=== PATIENT | male | born 1960 | race Caucasian/White ===

== ENCOUNTER → 2016-12-14 | Outpatient (CLI) | payer BC ==
[~2016-12-14] MED LIST: ATOR-26 PO; EZET10TA63 PO; HYDR12.524 PO; LISI40TA PO
[2016-12-14 15:02] LABS: ALT/SGPT 95 U/L (12-78); AST/SGOT 50 U/L (15-37); BLOOD UREA NITROGEN 16 mg/dl (7-18); CALCIUM 9.3 mg/dl (8.5-10.1); CARBON DIOXIDE 31 mmol/L (21-32); CHLORIDE 102 mmol/L (98-107); CHOLESTEROL 225 mg/dl (0-200); CREATININE 0.93 mg/dl (0.60-1.40); GLUCOSE 86 mg/dl (70-99); SODIUM 139 mmol/L (136-145)
[2016-12-14 15:06] LABS: CHOLESTEROL/HDL RATIO 4.2; HDL CHOLESTEROL 53 mg/dl; LDL CHOLESTEROL CALCULATED 159 mg/dl; TRIGLYCERIDES 63 mg/dl (0-150); VERY LOW DENSITY LIPOPROT CALC 13 mg/dl
== END | disposition home or self-care (01) ==
LOC: C.LAB 14:03
DX: I10 Essential (primary) hypertension (principal); E78.5 Hyperlipidemia, unspecified

== ENCOUNTER 2017-02-09 17:09 | Emergency (ER) | payer BC ==
[~2017-02-09] VITALS: Ht 177.8 cm; Wt 99.1 kg
[2017-02-09 17:16] VITALS: TEMP 36.9; Ht 177.8 cm; Wt 99.1 kg
[2017-02-09] MEDS ORDERED: SODIUM CHLORIDE 0.9% 1000ML 1,000 ML IV STA (17:35)
[2017-02-09 17:40] LABS: BASO % 0.4 %; BASO ABS # 0.02 K/uL (0-0.2); COMPLETE YES; EOS % 1.9 %; HEMATOCRIT 45.2 % (42-52); IG% 0.4 %; LYMPH % 26.7 %; LYMPH ABS # 1.51 K/uL (1.2-3.4); MEAN CELL VOLUME 89.2 fL (80-100); MEAN CORPUSCULAR HEMOGLOBIN 30.8 pg (25-34); MEAN CORPUSCULAR HGB CONC 34.5 g/dl (32-36); MEAN PLATELET VOLUME 9.6 fL (7.4-10.4); MONO % 12.2 %; NEUT % 58.4 %; PLATELET COUNT 242 K/uL (130-400); RED BLOOD COUNT 5.07 M/uL (4.7-6.1); WHITE BLOOD COUNT 5.66 K/uL (4.8-10.8)
[2017-02-09] MEDS ORDERED: LISI40TA PO (17:41)
[2017-02-09] MEDS ORDERED: EZET10TA63 PO (17:41)
[2017-02-09] MEDS ORDERED: HYDR12.524 PO (17:41)
[2017-02-09] MEDS ORDERED: ATOR-26 PO (17:41)
[2017-02-09] MEDS ORDERED: OPTIRAY 320 IV PRN (17:45)
[2017-02-09 17:57] LABS: BUN/CREATININE RATIO 14.6 (10-20); CALCIUM 9.2 mg/dl (8.5-10.1); CREATININE 1.1 mg/dl (0.60-1.40); POTASSIUM 3.7 mmol/L (3.5-5.1)
[2017-02-09 18:07] LABS: URINE APPEARANCE CLEAR (CLEAR); URINE BILIRUBIN NEG (NEG); URINE COLOR YELLOW; URINE NITRITE NEG (NEG); URINE PH 5.5 (4.5-7.5); UROBILINOGEN NEG (NEG); ZZUR CULT IF INDIC CLEAN CATCH NO
[2017-02-09 18:21] LABS: MANUAL MICROSCOPIC REQUIRED? NO; REVIEW REQ? NO
--- NOTE | 2017-02-09 18:49 | DIAGNOSTIC IMAGING REPORT ---
CT ABD/PELVIS IV CONTRAST ONLY CLINICAL HISTORY: Right lower quadrant abdominal pain COMPARISON STUDY: None. TECHNIQUE: Following the IV administration of 117 mL of Optiray-320, CT scan of the abdomen and pelvis was performed from the lung bases to the proximal femurs. Images are reviewed in the axial, sagittal, and coronal planes. IV contrast was administered without complication. CT DOSE: 763.25 mGy.cm FINDINGS: Lower chest: The heart is normal in size and configuration, without pericardial effusion. The lung bases and pleural spaces are clear. Liver: The contrast-enhanced liver is normal in size, contour, and attenuation. There is no intrahepatic biliary ductal dilatation. The hepatic veins and portal veins are patent. Gallbladder: Unremarkable. Spleen: Normal in size and attenuation. Pancreas: Unremarkable. Adrenal glands: Unremarkable. Kidneys: There are several small left renal cyst large of which measures 1 cm. 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 Bowel: There are no transition zones indicate bowel obstruction. There are no findings to indicate acute diverticulitis. There is no evidence of acute appendicitis. Peritoneum: There is no intraperitoneal free air or abdominal ascites. There is small fat-containing umbilical hernia. There are postsurgical changes of bilateral inguinal hernia repair. There is a small fat-containing right inguinal hernia. Vasculature: The abdominal aorta is normal in course and caliber. Adenopathy: There is a right inguinal lymph node the upper limits of normal in size. Pelvic viscera: The bladder, and pelvic viscera are unremarkable. Skeletal structures: No destructive osseous lesions are seen. IMPRESSION: 1. No evidence of bowel obstruction. No evidence of free air 2. No acute inflammatory changes. No evidence of acute diverticulitis. No evidence of acute appendicitis. 3. Postsurgical changes of bilateral inguinal hernia repair. Small recurrent fat-containing right inguinal hernia. Electronically signed by: Cristian Rao M.D. 02/09/2017 6:47 PM Dictated Date/Time: 02/09/2017 6:42 PM
[2017-02-09 20:40] VITALS: BP 131/87; PULSE 62; O2SAT 97
--- NOTE | 2017-02-09 23:09 | EMERGENCY ROOM VISIT NOTE ---
History Report prepared by Robert: Umu Palmer Under the Supervision of: Dr. Paul Keita D.O. First contact with patient: 17:11 Chief Complaint: ABDOMINAL PAIN Stated Complaint: ABDOMINAL PAIN- PHYSICIAN REFERRED Nursing Triage Summary: Pt presents from PCPs office, sent here for possible appendictis. Pt verbalizes right sided abdominal pain since Tuesday morning. Denies N/V. Denies urinary symptoms. Normal BMs. History of Present Illness The patient is a 56 year old male who presents to the Emergency Room with complaints of constant RLQ abdominal pain beginning 2 days ago. The patient states that his pain has increased since it started 2 days ago and he went to see his PCP today just prior to arrival. He reports that his PCP sent him in here. The patient notes that the pain is worse when he bends over. He denies any nausea, vomiting, fever, testicular pain, urinary symptoms, changes in bowel movements, chest pain, shortness of breath. He states that he still has his gallbladder and appendix. Source of History: patient Onset: 2 days ago Position: abdomen (RLQ) Timing: constant Modifying Factors (Worsening): other (bending over) Associated Symptoms: No SOB, No chest pain, No fevers, No nausea, No urinary symptoms, No vomiting Note: He denies any testicular pain and changes in bowel movements. Review of Systems See HPI for pertinent positives & negatives. A total of 10 systems reviewed and were otherwise negative. Past Medical & Surgical Medical Problems: (1) Heart disease (2) Hypertension Family History FH: heart disease Hypertension Social History Smoking Status: Never Smoker Smokeless Tobacco Use: No Alcohol Use: occasionally Marital Status: Housing Status: lives with significant other Occupation Status: employed Current/Historical Medications Scheduled Atorvastatin (Lipitor), 80 MG PO DAILY Ezetimibe (Zetia), 10 MG PO DAILY Hydrochlorothiazide (Microzide), 12.5 MG PO DAILY Lisinopril (Zestril), 40 MG PO DAILY Allergies Coded Allergies: No Known Allergies (Unverified , 02/09/17) Physical Exam Vital Signs Date Time Temp Pulse Resp B/P Pulse Ox O2 Delivery O2 Flow Rate FiO2 02/09/17 20:40 62 16 131/87 97 Room Air 02/09/17 18:53 76 18 114/78 96 Room Air 02/09/17 17:16 36.9 91 18 141/101 95 Room Air Physical Exam GENERAL: alert, sitting up in bed, disheveled, well appearing, well nourished, no distress, non-toxic EYE EXAM: normal conjunctiva OROPHARYNX: no exudate, no erythema, lips, buccal mucosa, and tongue normal and mucous membranes are moist NECK: supple, no nuchal rigidity, no adenopathy, non-tender LUNGS: Clear to auscultation. Normal chest wall mechanics HEART: no murmurs, S1 normal and S2 normal ABDOMEN: abdomen soft, faint RLQ-RMQ abdominal pain, normo-active bowel sounds, no masses, no rebound or guarding. BACK: Back is symmetrical on inspection and there is no deformity, no midline tenderness, no CVA tenderness. SKIN: no rashes and no bruising UPPER EXTREMITIES: upper extremities are grossly normal. LOWER EXTREMITIES: No pitting edema. NEURO EXAM: Normal sensorium, cranial nerves II-XII grossly intact, normal speech, no gross weakness of arms, no gross weakness of legs. : No appreciable hernia, no penile discharge, testicles are nontender Medical Decision & Procedures ER Provider Diagnostic Interpretation: Radiology results as stated below per my review and the radiologist's interpretation: CT ABD/PELVIS IV CONTRAST ONLY FINDINGS: Lower chest: The heart is normal in size and configuration, without pericardial effusion. The lung bases and pleural spaces are clear. Liver: The contrast-enhanced liver is normal in size, contour, and attenuation. There is no intrahepatic biliary ductal dilatation. The hepatic veins and portal veins are patent. Gallbladder: Unremarkable. Spleen: Normal in size and attenuation. Pancreas: Unremarkable. Adrenal glands: Unremarkable. Kidneys: There are several small left renal cyst large of which measures 1 cm. 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 Bowel: There are no transition zones indicate bowel obstruction. There are no findings to indicate acute diverticulitis. There is no evidence of acute appendicitis. Peritoneum: There is no intraperitoneal free air or abdominal ascites. There is small fat-containing umbilical hernia. There are postsurgical changes of bilateral inguinal hernia repair. There is a small fat-containing right inguinal hernia. Vasculature: The abdominal aorta is normal in course and caliber. Adenopathy: There is a right inguinal lymph node the upper limits of normal in size. Pelvic viscera: The bladder, and pelvic viscera are unremarkable. Skeletal structures: No destructive osseous lesions are seen. IMPRESSION: 1. No evidence of bowel obstruction. No evidence of free air 2. No acute inflammatory changes. No evidence of acute diverticulitis. No evidence of acute appendicitis. 3. Postsurgical changes of bilateral inguinal hernia repair. Small recurrent fat-containing right inguinal hernia. Electronically signed by: Cristian Rao M.D. 02/09/2017 6:47 PM Dictated Date/Time: 02/09/2017 6:42 PM Laboratory Results 02/09/17 17:30 Red Blood Count 5.07, Mean Corpuscular Volume 89.2, Mean Corpuscular Hemoglobin 30.8, Mean Corpuscular Hemoglobin Concent 34.5, Mean Platelet Volume 9.6, Neutrophils (%) (Auto) 58.4, Lymphocytes (%) (Auto) 26.7, Monocytes (%) (Auto) 12.2, Eosinophils (%) (Auto) 1.9, Basophils (%) (Auto) 0.4, Neutrophils # (Auto ) 3.31, Lymphocytes # (Auto) 1.51, Monocytes # (Auto) 0.69, Eosinophils # (Auto ) 0.11, Basophils # (Auto) 0.02 02/09/17 17:30 Test 02/09/17 17:30 02/09/17 17:42 White Blood Count 5.66 K/uL (4.8-10.8) Red Blood Count 5.07 M/uL (4.7-6.1) Hemoglobin 15.6 g/dL (14.0-18.0) Hematocrit 45.2 % (42-52) Mean Corpuscular Volume 89.2 fL (80-100) Mean Corpuscular Hemoglobin 30.8 pg (25-34) Mean Corpuscular Hemoglobin Concent 34.5 g/dl (32-36) Platelet Count 242 K/uL (130-400) Mean Platelet Volume 9.6 fL (7.4-10.4) Neutrophils (%) (Auto) 58.4 % Lymphocytes (%) (Auto) 26.7 % Monocytes (%) (Auto) 12.2 % Eosinophils (%) (Auto) 1.9 % Basophils (%) (Auto) 0.4 % Neutrophils # (Auto) 3.31 K/uL (1.4-6.5) Lymphocytes # (Auto) 1.51 K/uL (1.2-3.4) Monocytes # (Auto) 0.69 K/uL (0.11-0.59) Eosinophils # (Auto) 0.11 K/uL (0-0.5) Basophils # (Auto) 0.02 K/uL (0-0.2) RDW Standard Deviation 41.6 fL (36.4-46.3) RDW Coefficient of Variation 12.8 % (11.5-14.5) Immature Granulocyte % (Auto) 0.4 % Immature Granulocyte # (Auto) 0.02 K/uL (0.00-0.02) Anion Gap 7.0 mmol/L (3-11) Est Creatinine Clear Calc Drug Dose 89.6 ml/min Estimated GFR () 87.1 Estimated GFR (Non- 75.2 BUN/Creatinine Ratio 14.6 (10-20) Calcium Level 9.2 mg/dl (8.5-10.1) Total Bilirubin 0.7 mg/dl (0.2-1) Direct Bilirubin 0.1 mg/dl (0-0.2) Aspartate Amino Transf (AST/SGOT) 20 U/L (15-37) Alanine Aminotransferase (ALT/SGPT) 43 U/L (12-78) Alkaline Phosphatase 111 U/L (45-117) Total Protein 8.3 gm/dl (6.4-8.2) Albumin 4.2 gm/dl (3.4-5.0) Lipase 131 U/L (73-393) Urine Color YELLOW Urine Appearance CLEAR (CLEAR) Urine pH 5.5 (4.5-7.5) Urine Specific [place] 1.020 (1.000-1.030) Urine Protein NEG (NEG) Urine Glucose (UA) NEG (NEG) Urine Ketones NEG (NEG) Urine Occult Blood NEG (NEG) Urine Nitrite NEG (NEG) Urine Bilirubin NEG (NEG) Urine Urobilinogen NEG (NEG) Urine Leukocyte Esterase NEG (NEG) Urine WBC (Auto) 1-5 /hpf (0-5) Urine RBC (Auto) 0-4 /hpf (0-4) Urine Hyaline Casts (Auto) 1-5 /lpf (0-5) Urine Epithelial Cells (Auto) 5-10 /lpf (0-5) Urine Bacteria (Auto) NEG (NEG) Laboratory results per my review. Medications Administered Medications (Trade) Dose Ordered Sig/Maria Fernanda Route Start Time Stop Time Status Last Admin Dose Admin Sodium Chloride (Nss 1000ml) 1,000 ml @ 999 mls/hr Q1H1M STAT IV 02/09/17 17:35 02/09/17 18:35 DC 02/09/17 17:45 999 MLS/HR ED Course ED COURSE: Vital signs were reviewed and showed hypertension The patients medical record was reviewed The above diagnostic studies were performed and reviewed. ED treatments and interventions as stated above. 1721: The patient was evaluated in room C5. A complete history and physical examination was performed. 1735: Sodium Chloride 1000 ml @ 999 mls/hr IV. 1942: I reevaluated and updated the patient. 2006: Upon reevaluation, the patient is doing well.I discussed my findings with the patient and he understands and agrees with the treatment plan. Based on the patients age, coexisting illnesses, exam and lab findings the decision to treat as an outpatient was made. The patient remained stable while under my care. The patient appeared well at the time of discharge. Medical Decision Differential diagnoses includes but is not limited to gastritis, peptic ulcer disease, GERD, gallbladder disease, pancreatitis, small bowel obstruction, acute coronary syndrome, pericarditis, ischemic bowel, irritable bowel disease, irritable bowel syndrome, appendicitis, diverticulitis, malignancy, hernia, urinary tract infection, torsion, perforation, trauma, infectious. Medication Reconciliation: I attest that I have personally reviewed the patient' s current medication list. Blood pressure screening: Patient was found to have an elevated blood pressure and was referred to their primary doctor for recheck and further treatment. Patient is a 56-year-old male who presents the ER for right lower quadrant abdominal pain. CBC along with BMP, LFTs, bilirubin and lipase is unremarkable. UA was negative. CT of his abdomen pelvis shows no diverticulitis or appendicitis. No acute pathology. He does have a right inguinal hernia which is fat-containing. He has no tenderness over the inguinal canal. Uncertain of the true urology of this pain however this could be secondary to the inguinal fat-containing hernia. Cannot be certain at this time but without obvious tenderness in the inguinal canal, I favor that his pain is most likely abdominal in etiology. With a negative CT he was discharged follow-up with his primary care doctor. Discussed with Pt concerning signs and symptoms to watch out for. Pt was instructed to follow up with their PCP and discussed with the patient their option to return to the ED at anytime for persistent or worsening symptoms. The appropriate anticipatory guidance and out-patient management, including indications for return to the emergency department, were explained at length to the patient and understood. Impression Primary Impression: Abdominal pain Additional Impression: Right inguinal hernia Scribe Attestation The scribe's documentation has been prepared under my direction and personally reviewed by me in its entirety. I confirm that the note above accurately reflects all work, treatment, procedures, and medical decision making performed by me. Departure Information Dispostion Home / Self-Care Referrals Fran Taylor Jr,D.O. (PCP) Forms Call Back Authorization, HOME CARE DOCUMENTATION FORM, IMPORTANT VISIT INFORMATION Patient Instructions ED Hernia Inguinal, [facility] Additional Instructions Please follow up with your primary care doctor or if you are a student [facility] with in the next 24 hours. Any worsening of your symptoms, please return to the ED immediately. This includes persistent nausea vomiting, worsening pain, passing out, blood in your stools, inability move your bowels, or any other concerning signs or symptoms from your standpoint. You do have a small right inguinal canal fat-containing hernia. This may be the cause of your symptoms. Please follow-up with your primary care doctor and general surgery. Problem Qualifiers Primary Impression: Abdominal pain Abdominal location: right lower quadrant Qualified Codes: R10.31 - Right lower quadrant pain
== END 2017-02-09 20:40 | disposition home or self-care (01) ==
LOC: C.EDB 17:10 → C.EDC 20:40
DX: R10.31 Right lower quadrant pain (principal); K40.90 Unilateral inguinal hernia, without obstruction or gangrene, not specified as recurrent; I10 Essential (primary) hypertension; I51.9 Heart disease, unspecified; Z79.899 Other long term (current) drug therapy

== ENCOUNTER → 2017-06-21 | Outpatient (CLI) | payer BC ==
[2017-06-21 15:17] LABS: ALT/SGPT 51 U/L (12-78); BLOOD UREA NITROGEN 14 mg/dl (7-18); BUN/CREATININE RATIO 15.7 (10-20); CALCIUM 9.4 mg/dl (8.5-10.1); CARBON DIOXIDE 27 mmol/L (21-32); CHLORIDE 101 mmol/L (98-107); CREATININE 0.91 mg/dl (0.60-1.40); GLUCOSE 82 mg/dl (70-99); POTASSIUM 3.9 mmol/L (3.5-5.1); SODIUM 135 mmol/L (136-145)
[2017-06-21 15:19] LABS: AST/SGOT 27 U/L (15-37)
== END | disposition home or self-care (01) ==
LOC: C.LAB 13:42
DX: I10 Essential (primary) hypertension (principal); E78.5 Hyperlipidemia, unspecified

== ENCOUNTER 2022-10-27 01:21 | Inpatient (IN) ==
[2022-10-27 02:03] LABS: Basophils # (auto) 0.04 K/uL (0-0.2); Basophils % (auto) 0.4 %; Eosinophils # (auto) 0.31 K/uL (0-0.50); Eosinophils % (auto) 3.1 %; Hematocrit (blood only) 39.4 % (42.0-52.0); Hemoglobin 14.5 g/dl (14.0-18.0); Immature Granulocytes # (auto) 0.05 K/uL (0.01-0.20); Immature Granulocytes % (auto) 0.5 %; Lymphocytes # (auto) 1.88 K/uL (1.2-3.4); Lymphocytes % (auto) 18.9 %; Mean Corpuscular Hgb Conc 36.8 g/dL (32.0-36.0); Mean Corpuscular Volume 84.4 fL (80.0-100.0); Mean Platelet Volume 9.4 fL (9.4-12.4); Monocytes # (auto) 1.08 K/uL (0.11-0.59); Monocytes % (auto) 10.8 %; Neutrophils # (auto) 6.61 K/uL (1.40-6.50); Neutrophils % (auto) 66.3 %; Platelet Count 222 K/uL (130-400); RDW Coefficient of Variation 11.9 % (11.5-14.5); Red Blood Count 4.67 M/uL (4.70-6.10); White Blood Count 9.97 K/ul (4.8-10.8)
[2022-10-27 02:06] LABS: Appearance Urine Clear (Clear); Bilirubin Urine Negative (Negative); Blood Urine Negative (Negative); Color Urine Yellow; Glucose Urine UA Negative (Negative); Ketones Urine Negative (Negative); Leukocyte Esterase Urine Negative (Negative); Nitrite Urine Negative (Negative); Protein Urine Negative (Negative); Specific Gravity Urine 1.017 (1.000-1.030); Urobilinogen Urine Negative (Negative)
[2022-10-27] MEDS ORDERED: HYDROmorphone INJ 0.5 MG/0.5 ML SYR IV STA (02:37)
[2022-10-27] MEDS ORDERED: ONDANSETRON INJ 2 MG/ML 2 ML VIAL IV STA (02:37)
[2022-10-27] MEDS ORDERED: SODIUM CHLORIDE 0.9% 1000ML 1,000 ML IV SCH (02:45)
[2022-10-27 02:54] LABS: Albumin Level 4.2 gm/dl (3.4-5.0); Bilirubin,Total 0.9 mg/dl (0.2-1.0); Calcium 9.1 mg/dl (8.5-10.1); Potassium 3.4 mmol/L (3.5-5.1)
[2022-10-27 02:59] LABS: Albumin Globulin Ratio 1.3 (0.9-2); BUN Creatinine Ratio 11.9 (10-20); Creatinine Clr Calc Pharmacy 54.9 ml/min; Est GFR (African American) 47.3 ml/min; Est GFR (Non-African American) 40.8 ml/min; Globulin 3.3 gm/dl (2.5-4.0); Total Protein 7.5 gm/dl (6.0-8.3); Troponin I High Sensitivity 6.7 pg/ml (0-20)
--- NOTE | 2022-10-27 04:55 | Emergency Department Note ---
Impression & Plan Hyponatremia, Left ureteral stone, Renal rupture ED Provider Note CHIEF COMPLAINT: Left flank and lower abdominal pain, bloating HISTORY OF PRESENT ILLNESS: This 61-year-old male patient with a history of UTI, kidney stones and right inguinal hernia presents to the emergency department with complaints of left flank pain and now left lower abdominal discomfort and bloating. The patient does have a history of kidney stones for which she was seen in the emergency department several days ago. He has not seen urology yet in follow-up. He states he has not had much to eat but does feel bloated, he has not had a bowel movement in 2+ days. He did try a laxative prior to arrival. Patient denies any fevers, blood in the urine or vomiting. REVIEW OF SYSTEMS: A review of systems was performed with positives and pertinent negatives listed in the history of present illness. 10 systems were reviewed and are otherwise negative. ALLERGIES: see below MEDICATIONS: see below PMH: see below SOCIAL HISTORY: see below DDx: Appendicitis, testicular torsion, infections, diverticulitis, UTI, obstruction, mesenteric ischemia, aortic pathology, inflammatory bowel disease, renal colic, PUD, pancreatitis, biliary pathology, hernia, volvulus, constipation, as well as other pathologies. PHYSICAL EXAM: Vital signs reviewed. General: Well-appearing 61-year-old male, in some discomfort. HEENT: No scleral icterus, PERRLA, neck supple. Moist mucous membranes Cardiovascular: Regular rate and rhythm, no extra sounds. Pulmonary: Clear to auscultation bilaterally, normal work of breathing. Abdomen: Soft, mild diffuse abdominal tenderness, no rebound or guarding, nondistended, positive bowel sounds. Musculoskeletal: Atraumatic, no peripheral edema. Mild left CVA discomfort. Neurologic: Patient awake alert and oriented x 3 Skin: Warm, dry, no rash EMERGENCY DEPARTMENT COURSE/MDM: This patient was evaluated and appeared to be in no significant distress. IV access was obtained and laboratory work was drawn. The patient's external medical records were reviewed. Patient was medicated with IV Dilaudid and Zofran. He was hydrated with normal saline solution. CT imaging of the abdomen pelvis was performed and reveals a forniceal rupture with some surrounding inflammation. There is a 3 mm stone visualized at the left UVJ. Lab work reveals a slightly elevated creatinine and hyponatremia. Due to the patient's discomfort and residual kidney stone, patient was evaluated by the hospitalist service for admission and further management. He and his are aware of the plan and agree. MONITORING: An order for cardiac monitoring was placed and the patient is noted to be in a normal sinus rhythm 86 beats per minute. RADIOLOGY: Preliminary Findings Only See Final Report For Complete Findings CT ABDOMEN & PELVIS Without Contrast: There is a 3 mm left ureterovesical junction calculus resulting in mild hydronephrosis. Significant for inflammatory stranding surrounds the ureter which is nonspecific. Cannot exclude ureteral injury/rupture given the degree of fluid. Nonobstructing 3 mm right renal calculus. No right hydronephrosis. The remaining solid organs are otherwise unremarkable. No bowel obstruction. Normal appendix. No fracture. Small bilateral fat-containing inguinal hernias. Radiologist: Tosha Stanley MD Study ready at 03:10 and initial results transmitted at 04:4 DISPOSITION: Home Past Med/Surg History Medical History Heart disease Hypertension No pertinent family history Surgical History H/O hernia repair Social History Smoking Status: Former smoker Second Hand Exposure: No; Hx Substance Use: No Preferred Language: Croatian Communication Ability: Effective Lathe Setup Operator Required: No Beliefs That Will Affect Care: None Current Living Situation: Spouse Feels Safe at Home: Yes Assistive Devices: None Allergies Allergies Allergy/AdvReac Type Severity Reaction Status Date / Time lisinopril AdvReac Cough Verified 10/27/22 05:32 Home Meds Home Medications Medication Instructions Recorded Confirmed Ezetimibe (Zetia) 10 mg PO DAILY #0 tabs 02/09/17 10/27/22 amlodipine 10 mg tablet 10 mg PO DAILY 10/27/22 10/27/22 aspirin 81 mg PO DAILY 10/27/22 10/27/22 budesonide-formoterol HFA 160 2 puff inhalation BID 10/27/22 10/27/22 mcg-4.5 mcg/actuation aerosol inhaler (Symbicort) metoprolol succinate 50 mg 75 mg PO DAILY 10/27/22 10/27/22 tablet,extended release 24 hr rosuvastatin 40 mg tablet 40 mg PO DAILY 10/27/22 10/27/22 Previous Rx's Medication Instructions Recorded ciprofloxacin HCl 500 mg tablet 500 mg PO BID #14 tabs 10/25/22 ondansetron 4 mg disintegrating 4 mg PO Q8H PRN nausea and 10/25/22 tablet vomiting #30 tabs oxycodone 5 mg tablet 5 mg PO Q8H PRN pain #11 tabs 10/25/22 tamsulosin 0.4 mg capsule (Flomax) 0.4 mg PO DAILY #14 caps 10/25/22 Results & Data (ED) Vital Signs Vital Signs - 24 hr 10/27/22 01:25 10/27/22 02:47 10/27/22 03:30 Temperature 36.8 C Temperature Source Temporal Artery Scan Pulse Rate 83 Pulse Rate [Finger] 75 71 Respiratory Rate 18 20 18 Respiratory Effort / Characteristics Non-Labored Spontaneous Respiratory Depth Normal Normal Normal Blood Pressure 134/88 Blood Pressure [Right Arm] 140/85 128/84 Blood Pressure Mean 103 Blood Pressure Mean [Right Arm] 103 98 Pulse Oximetry 94 94 93 Oxygen Delivery Method Room Air Sepsis Recent Fever Within 48 Hours No Sepsis New/Unexplained Change in Mental Status N/A Sepsis Action Taken by Nursing No Action Required 10/27/22 04:00 Temperature Temperature Source Pulse Rate Pulse Rate [Finger] 75 Respiratory Rate 20 Respiratory Effort / Characteristics Respiratory Depth Normal Blood Pressure Blood Pressure [Right Arm] 128/84 Blood Pressure Mean Blood Pressure Mean [Right Arm] 98 Pulse Oximetry 93 Oxygen Delivery Method Room Air Sepsis Recent Fever Within 48 Hours Sepsis New/Unexplained Change in Mental Status Sepsis Action Taken by Prison Medications Current Medication List: was personally reviewed by me Laboratory Data Attestation: I reviewed the patient's lab results. 10/27/22 01:40 10/27/22 01:40 Lab Results 10/27/22 10/27/22 10/27/22 Range/Units 01:40 01:40 01:40 WBC 9.97 (4.8-10.8) K/ul RBC 4.67 L (4.70-6.10) M/uL Hgb 14.5 (14.0-18.0) g/dl Hct 39.4 L (42.0-52.0) % MCV 84.4 (80.0-100.0) fL MCH 31.0 (25.0-34.0) pg MCHC 36.8 H (32.0-36.0) g/dL RDW Std Deviation 36.0 L (36.4-46.3) fL RDW Coeff of Rick 11.9 (11.5-14.5) % Plt Count 222 (130-400) K/uL MPV 9.4 (9.4-12.4) fL Immature Gran % (Auto) 0.5 % Neut % (Auto) 66.3 % Lymph % (Auto) 18.9 % [place] % (Auto) 10.8 % Eos % (Auto) 3.1 % Baso % (Auto) 0.4 % Neut # (Auto) 6.61 H (1.40-6.50) K/uL Lymph # (Auto) 1.88 (1.2-3.4) K/uL [place] # (Auto) 1.08 H (0.11-0.59) K/uL Eos # (Auto) 0.31 (0-0.50) K/uL Baso # (Auto) 0.04 (0-0.2) K/uL Immature Gran # (Auto) 0.05 (0.01-0.20) K/uL Sodium 124 L D (136-145) mmol/L Potassium 3.4 L (3.5-5.1) mmol/L Chloride 89 L (98-107) mmol/L Carbon Dioxide 28 (21-32) mmol/L Anion Gap 7 (3-11) BUN 21 (6-23) mg/dl Creatinine 1.77 H D (0.6-1.4) mg/dl Est Cr Clr Drug Dosing 54.9 ml/min Est GFR ( Amer) 47.3 ml/min Est GFR (Non-Af Amer) 40.8 ml/min BUN/Creatinine Ratio 11.9 (10-20) Glucose 105 H (70-99(Fasting)) mg/dl Calcium 9.1 (8.5-10.1) mg/dl Magnesium 1.7 (1.7-2.4) mg/dl Total Bilirubin 0.9 (0.2-1.0) mg/dl AST 20 (13-39) U/L ALT 31 (7-52) U/L Alkaline Phosphatase 69 (34-104) U/L Troponin I High Sens 6.7 (0-20) pg/ml Total Protein 7.5 (6.0-8.3) gm/dl Albumin 4.2 (3.4-5.0) gm/dl Globulin 3.3 (2.5-4.0) gm/dl Albumin/Globulin Ratio 1.3 (0.9-2) Lipase 8 L (11-82) U/L Urine Color Yellow Urine Appearance Clear (Clear) Urine pH 5.0 (4.5-7.5) Ur Specific [place] 1.017 (1.000-1.030) Urine Protein Negative (Negative) Urine Glucose (UA) Negative (Negative) Urine Ketones Negative (Negative) Urine Blood Negative (Negative) Urine Nitrite Negative (Negative) Urine Bilirubin Negative (Negative) Urine Urobilinogen Negative (Negative) Ur Leukocyte Esterase Negative (Negative) SARS-CoV-2, RNA, NAAT (NEGATIVE) 10/27/22 10/27/22 Range/Units 01:40 01:40 WBC (4.8-10.8) K/ul RBC (4.70-6.10) M/uL Hgb (14.0-18.0) g/dl Hct (42.0-52.0) % MCV (80.0-100.0) fL MCH (25.0-34.0) pg MCHC (32.0-36.0) g/dL RDW Std Deviation (36.4-46.3) fL RDW Coeff of Rick (11.5-14.5) % Plt Count (130-400) K/uL MPV (9.4-12.4) fL Immature Gran % (Auto) % Neut % (Auto) % Lymph % (Auto) % [place] % (Auto) % Eos % (Auto) % Baso % (Auto) % Neut # (Auto) (1.40-6.50) K/uL Lymph # (Auto) (1.2-3.4) K/uL [place] # (Auto) (0.11-0.59) K/uL Eos # (Auto) (0-0.50) K/uL Baso # (Auto) (0-0.2) K/uL Immature Gran # (Auto) (0.01-0.20) K/uL Sodium (136-145) mmol/L Potassium (3.5-5.1) mmol/L Chloride (98-107) mmol/L Carbon Dioxide (21-32) mmol/L Anion Gap (3-11) BUN (6-23) mg/dl Creatinine (0.6-1.4) mg/dl Est Cr Clr Drug Dosing ml/min Est GFR ( Amer) ml/min Est GFR (Non-Af Amer) ml/min BUN/Creatinine Ratio (10-20) Glucose (70-99(Fasting)) mg/dl Calcium (8.5-10.1) mg/dl Magnesium Cancelled (1.7-2.4) mg/dl Total Bilirubin (0.2-1.0) mg/dl AST (13-39) U/L ALT (7-52) U/L Alkaline Phosphatase (34-104) U/L Troponin I High Sens (0-20) pg/ml Total Protein (6.0-8.3) gm/dl Albumin (3.4-5.0) gm/dl Globulin (2.5-4.0) gm/dl Albumin/Globulin Ratio (0.9-2) Lipase (11-82) U/L Urine Color Urine Appearance (Clear) Urine pH (4.5-7.5) Ur Specific [place] (1.000-1.030) Urine Protein (Negative) Urine Glucose (UA) (Negative) Urine Ketones (Negative) Urine Blood (Negative) Urine Nitrite (Negative) Urine Bilirubin (Negative) Urine Urobilinogen (Negative) Ur Leukocyte Esterase (Negative) SARS-CoV-2, RNA, NAAT NEGATIVE (NEGATIVE) Administered Medications Discontinued Medications Amlodipine Besylate (Amlodipine Besylate 5 Mg Tab) 10 mg PO DAILY [facility] Stop: 11/26/22 09:44 Last Admin: 10/28/22 08:11 Dose: 10 mg Documented By: [id number] Admin: 10/27/22 10:07 Dose: 10 mg Documented By: LOLI Ezetimibe (Ezetimibe 10 Mg Tablet) 10 mg PO DAILY [facility] Stop: 11/26/22 09:44 Last Admin: 10/28/22 08:11 Dose: 10 mg Documented By: [id number] Admin: 10/27/22 10:05 Dose: 10 mg Documented By: LOLI Fluticasone/Vilanterol (Fluticasone/Vilanterol 200/25mcg 14 Puffs/Inhaler) 1 puffs INH DAILY [facility]; Protocol Stop: 11/26/22 09:44 Last Admin: 10/28/22 08:11 Dose: 1 puffs Documented By: [id number] Admin: 10/27/22 10:07 Dose: 1 puffs Documented By: LOLI Heparin Sodium (Porcine) (Heparin Sod 5,000 Unit/0.5 Ml Vial) 5,000 units SQ Q8 [facility] Stop: 11/26/22 09:44 Last Admin: 10/28/22 05:57 Dose: 5,000 units Documented By: Admin: 10/27/22 22:35 Dose: 5,000 units Documented By: Admin: 10/27/22 17:14 Dose: 5,000 units Documented By: Admin: 10/27/22 10:08 Dose: 5,000 units Documented By: LOLI Hydromorphone HCl (Hydromorphone Inj 0.5 Mg/0.5 Ml Syr) 0.5 mg IV NOW STA Stop: 10/27/22 02:38 Last Admin: 10/27/22 02:46 Dose: 0.5 mg Documented By: SHANI Sodium Chloride (Nss 1000ml) 1,000 mls @ 125 mls/hr IV .Q8H [facility] Stop: 11/26/22 02:44 Last Infusion: 10/27/22 06:32 Dose: 0 mls/hr Documented By: Infusion: 10/27/22 06:30 Dose: 0 mls/hr Documented By: Admin: 10/27/22 02:45 Dose: 125 mls/hr Documented By: SHANI Sodium Chloride (Nss 1000ml) 1,000 mls @ 50 mls/hr IV .Q20H ONE Stop: 10/28/22 01:57 Last Infusion: 10/27/22 21:04 Dose: 0 mls/hr Documented By: Admin: 10/27/22 06:30 Dose: 50 mls/hr Documented By: SHANI Ceftriaxone Sodium 2,000 mg/ (Dextrose) 50 mls @ 100 mls/hr IV Q24H [facility]; Protocol Stop: 11/06/22 08:29 Last Infusion: 10/28/22 08:56 Dose: 0 mls/hr Documented By: [id number] Admin: 10/28/22 08:10 Dose: 100 mls/hr Documented By: [id number] Infusion: 10/27/22 10:38 Dose: 0 mls/hr Documented By: Admin: 10/27/22 10:04 Dose: 100 mls/hr Documented By: LOLI Magnesium Oxide (Magnesium Oxide 400 Mg Tab) 400 mg PO QAM [facility] Stop: 11/27/22 09:29 Last Admin: 10/28/22 10:06 Dose: 400 mg Documented By: [id number] Metoprolol Succinate (Metoprolol Succ 25mg Ext Rel Tab) 25 mg PO QAM [facility] Stop: 11/26/22 09:44 Last Admin: 10/28/22 08:11 Dose: 25 mg Documented By: [id number] Admin: 10/27/22 10:07 Dose: 25 mg Documented By: LOLI Ondansetron HCl (Ondansetron Inj 2 Mg/Ml 2 Ml Vial) 4 mg IV NOW STA Stop: 10/27/22 02:38 Last Admin: 10/27/22 02:45 Dose: 4 mg Documented By: SHANI Polyethylene Glycol (Polyethylene (Miralax) 17 Gm Pack) 17 gm PO DAILY [facility] Stop: 11/26/22 13:29 Last Admin: 10/28/22 08:16 Dose: 17 gm Documented By: [id number] Admin: 10/27/22 13:43 Dose: 17 gm Documented By: LOLI Potassium Chloride (Potassium Chloride Crtab 20 Meq Tabcr) 20 meq PO NOW STA Stop: 10/27/22 05:11 Last Admin: 10/27/22 05:41 Dose: 20 meq Documented By: SHANI Potassium Chloride (Potassium Chloride Crtab 20 Meq Tabcr) 20 meq PO NOW STA Stop: 10/28/22 09:27 Last Admin: 10/28/22 10:06 Dose: 20 meq Documented By: [id number] Rosuvastatin Calcium (Rosuvastatin Calcium 20 Mg Tab) 40 mg PO DAILY [facility] Stop: 11/26/22 09:44 Last Admin: 10/28/22 08:11 Dose: 40 mg Documented By: [id number] Admin: 10/27/22 10:06 Dose: 40 mg Documented By: LOLI Sennosides (Senna 8.6 Mg Tab) [facility] Stop: 11/26/22 18:29 Last Admin: 10/28/22 08:16 Dose: Not Given Documented By: [id number] Admin: 10/27/22 19:36 Dose: 8.6 mg Documented By: ASHLEY Tamsulosin HCl (Tamsulosin Hcl 0.4 Mg Cap) 0.4 mg PO DAILY [facility] Stop: 11/26/22 09:44 Last Admin: 10/28/22 08:11 Dose: 0.4 mg Documented By: [id number] Admin: 10/27/22 10:06 Dose: 0.4 mg Documented By: [facility] [place] [facility] Discharge Plan Visit Data Chief Complaint: Constipation Stated Complaint: KIDNEY STONE,CONSTIPATION,BLOATED,LEGS SWELLING ED Provider: Drea Valentine Discharge Problem: Hyponatremia, Left ureteral stone, Renal rupture Patient Disposition: Admitted As Inpatient Discharge Instructions Interventions: ED Discharge Assessment Last Done: 10/27/22 08:52
[2022-10-27] MEDS ORDERED: POTASSIUM CHLORIDE CRTAB 20 MEQ TABCR PO STA (05:10)
--- NOTE | 2022-10-27 05:20 | History & Physical Report ---
Date of Service October 27, 2022 Assessment & Plan (1) Complicated UTI (urinary tract infection): Plan: Secondary to obstructive uropathy Hyponatremia, ARF secondary to illness Home diuretic contributory hypertension, stable Hyperlipidemia on statin Rx valvular heart disease (moderate , mild MR 2021 TTE) past tobacco abuse. Medical telemetry given hyponatremia Hyponatremia work-up careful correction of serum sodium/careful IV hydration given valvular heart disease Monitor creatinine response to IVF Ceftriaxone for complicated UTI Urology consult Re: Obstructive uropathy (ER provider already in touch with Dr. Choudhury.) N.p.o. until patient seen by Urology in anticipation of procedure. DVT prophylaxis. Heparin subcu Full code Text document was generated using Onovative voice recognition software. It may contain grammatical or spelling errors. Kindly contact undersigned for clarification of any documentation item in question. History of Present Illness Chief Complaint: Worsening left flank pain Primary Care Provider: Houston Francois, History obtained from patient and records. Medical history significant for hypertension, hyperlipidemia, valvular heart disease (moderate , mild MR 2021 TTE), urolithiasis, past tobacco abuse. 2 days ago, patient noted achy left-sided flank pain with nausea symptoms. No hematuria, no fever, no chills. Patient seen at the ER. CAT scan showed 3 mm obstructing calculus left suprarenal junction with moderate left hydroureteronephrosis and left-sided perinephric stranding within retrocrural space likely from forniceal rupture. Patient offered admission but declined. Patient discharged on ciprofloxacin and Vicodin home medications with instructions to follow-up with Urology outpatient. Worsening discomfort at home despite compliance with regimen. No fever, no chills, no chest pain, no SOB. Poor appetite. Patient returned to the ER this morning. 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 Allergies Allergy/AdvReac Type Severity Reaction Status Date / Time lisinopril AdvReac Cough Verified 10/27/22 05:32 Home Medications Medication Instructions Recorded Confirmed Type Ezetimibe (Zetia) 10 mg PO DAILY #0 tabs 02/09/17 10/27/22 History ciprofloxacin HCl 500 mg tablet 500 mg PO BID #14 tabs 10/25/22 10/27/22 Rx ondansetron 4 mg disintegrating 4 mg PO Q8H PRN nausea and 10/25/22 10/27/22 Rx tablet vomiting #30 tabs oxycodone 5 mg tablet 5 mg PO Q8H PRN pain #11 tabs 10/25/22 10/27/22 Rx tamsulosin 0.4 mg capsule (Flomax) 0.4 mg PO DAILY #14 caps 10/25/22 10/27/22 Rx amlodipine 10 mg tablet 10 mg PO DAILY 10/27/22 10/27/22 History aspirin 81 mg PO DAILY 10/27/22 10/27/22 History budesonide-formoterol HFA 160 2 puff inhalation BID 10/27/22 10/27/22 History mcg-4.5 mcg/actuation aerosol inhaler (Symbicort) hydrochlorothiazide 25 mg tablet 25 mg PO DAILY 10/27/22 10/27/22 History metoprolol succinate 50 mg 75 mg PO DAILY 10/27/22 10/27/22 History tablet,extended release 24 hr rosuvastatin 40 mg tablet 40 mg PO DAILY 10/27/22 10/27/22 History Past Med/Surg History Medical History Heart disease Hypertension No pertinent family history Surgical History H/O hernia repair Social History Smoking Status: Former smoker Second Hand Exposure: No; Do You Dip or Chew Tobacco: No; Tobacco Cessation Education Requested by Patient: No Hx Substance Use: No Preferred Language: Swedish Communication Ability: Effective Boiler House Operator Required: No Beliefs That Will Affect Care: None Current Living Situation: Spouse Other Information That Helps Us Care for You: No Feels Safe at Home: Yes Safety Concerns: Feels Safe At This Time Assistive Devices: None Review of Systems Review of Systems: As per HPI, all other systems reviewed and negative Physical Exam Physical Exam: GENERAL: Comfortable, pleasant, obese, no respiratory distress SKIN: Normal color, warm HEENT: [place] palpebral conjunctivae, no ptosis, dry buccal mucosa NECK : Supple, short neck, no tenderness CHEST : CTA, no tenderness HEART : RRR, systolic murmur best heard over sternal border ABDOMEN: Some distention, left-sided abdominal tenderness EXTREMITIES : Minimal LE swelling, no LE tenderness, no other conspicuous deformities noted NEUROLOGIC : Coherent, no facial asymmetry, no other gross focality Results & Data Results & Data ([facility]) Vital Signs (Past 12 Hours) Vital Signs Temp Pulse Pulse Resp BP BP Pulse Ox 10/27/22 04:00 75 20 128/84 93 10/27/22 03:30 71 18 128/84 93 10/27/22 02:47 75 20 140/85 94 10/27/22 01:25 36.8 C 83 18 134/88 94 O2 Del Method 10/27/22 04:00 Room Air 10/27/22 03:30 Room Air 10/27/22 02:47 10/27/22 01:25 Laboratory Results Laboratory Results WBC 9.97 K/ul (4.8-10.8) 10/27/22 01:40 RBC 4.67 M/uL (4.70-6.10) L 10/27/22 01:40 Hgb 14.5 g/dl (14.0-18.0) 10/27/22 01:40 Hct 39.4 % (42.0-52.0) L 10/27/22 01:40 MCV 84.4 fL (80.0-100.0) 10/27/22 01:40 MCH 31.0 pg (25.0-34.0) 10/27/22 01:40 MCHC 36.8 g/dL (32.0-36.0) H 10/27/22 01:40 RDW Std Deviation 36.0 fL (36.4-46.3) L 10/27/22 01:40 RDW Coeff of Rick 11.9 % (11.5-14.5) 10/27/22 01:40 Plt Count 222 K/uL (130-400) 10/27/22 01:40 MPV 9.4 fL (9.4-12.4) 10/27/22 01:40 Immature Gran % (Auto) 0.5 % 10/27/22 01:40 Neut % (Auto) 66.3 % 10/27/22 01:40 Lymph % (Auto) 18.9 % 10/27/22 01:40 [place] % (Auto) 10.8 % 10/27/22 01:40 Eos % (Auto) 3.1 % 10/27/22 01:40 Baso % (Auto) 0.4 % 10/27/22 01:40 Neut # (Auto) 6.61 K/uL (1.40-6.50) H 10/27/22 01:40 Lymph # (Auto) 1.88 K/uL (1.2-3.4) 10/27/22 01:40 [place] # (Auto) 1.08 K/uL (0.11-0.59) H 10/27/22 01:40 Eos # (Auto) 0.31 K/uL (0-0.50) 10/27/22 01:40 Baso # (Auto) 0.04 K/uL (0-0.2) 10/27/22 01:40 Immature Gran # (Auto) 0.05 K/uL (0.01-0.20) 10/27/22 01:40 Sodium 124 mmol/L (136-145) L D 10/27/22 01:40 Potassium 3.4 mmol/L (3.5-5.1) L 10/27/22 01:40 Chloride 89 mmol/L (98-107) L 10/27/22 01:40 Carbon Dioxide 28 mmol/L (21-32) 10/27/22 01:40 Anion Gap 7 (3-11) 10/27/22 01:40 BUN 21 mg/dl (6-23) 10/27/22 01:40 Creatinine 1.77 mg/dl (0.6-1.4) H D 10/27/22 01:40 Est Cr Clr Drug Dosing 54.9 ml/min 10/27/22 01:40 Est GFR ( Amer) 47.3 ml/min 10/27/22 01:40 Est GFR (Non-Af Amer) 40.8 ml/min 10/27/22 01:40 BUN/Creatinine Ratio 11.9 (10-20) 10/27/22 01:40 Glucose 105 mg/dl (70-99(Fasting)) H 10/27/22 01:40 Calcium 9.1 mg/dl (8.5-10.1) 10/27/22 01:40 Total Bilirubin 0.9 mg/dl (0.2-1.0) 10/27/22 01:40 AST 20 U/L (13-39) 10/27/22 01:40 ALT 31 U/L (7-52) 10/27/22 01:40 Alkaline Phosphatase 69 U/L (34-104) 10/27/22 01:40 Troponin I High Sens 6.7 pg/ml (0-20) 10/27/22 01:40 Total Protein 7.5 gm/dl (6.0-8.3) 10/27/22 01:40 Albumin 4.2 gm/dl (3.4-5.0) 10/27/22 01:40 Globulin 3.3 gm/dl (2.5-4.0) 10/27/22 01:40 Albumin/Globulin Ratio 1.3 (0.9-2) 10/27/22 01:40 Lipase 8 U/L (11-82) L 10/27/22 01:40 Urine Color Yellow 10/27/22 01:40 Urine Appearance Clear (Clear) 10/27/22 01:40 Urine pH 5.0 (4.5-7.5) 10/27/22 01:40 Ur Specific [place] 1.017 (1.000-1.030) 10/27/22 01:40 Urine Protein Negative (Negative) 10/27/22 01:40 Urine Glucose (UA) Negative (Negative) 10/27/22 01:40 Urine Ketones Negative (Negative) 10/27/22 01:40 Urine Blood Negative (Negative) 10/27/22 01:40 Urine Nitrite Negative (Negative) 10/27/22 01:40 Urine Bilirubin Negative (Negative) 10/27/22 01:40 Urine Urobilinogen Negative (Negative) 10/27/22 01:40 Ur Leukocyte Esterase Negative (Negative) 10/27/22 01:40 SARS-CoV-2, RNA, NAAT NEGATIVE (NEGATIVE) 10/27/22 01:[address] abdomen pelvis initial read: There is a 3 mm left ureterovesical junction calculus resulting in mild hydronephrosis. Significant for inflammatory stranding surrounds the ureter which is nonspecific. Cannot exclude ureteral injury/rupture given the degree of fluid. Nonobstructing 3 mm right renal calculus. No right hydronephrosis. The remaining solid organs are otherwise unremarkable. No bowel obstruction. Normal appendix. No fracture. Small bilateral fat-containing inguinal hernias. Chest x-ray as per my interpretation atelectasis, elevated right hemidiaphragm
[2022-10-27] MEDS ORDERED: SODIUM CHLORIDE 0.9% 1000ML 1,000 ML IV ONE (05:58)
[2022-10-27] MEDS ORDERED: PROMETHAZINE HCL 12.5 MG in SODIUM CHLORIDE 0.9% 50 ML IV PRN (06:06)
[2022-10-27] MEDS ORDERED: oxyCODONE HCL IR 5 MG TAB (IMMEDIATE RELEASE) PO PRN (06:06)
[2022-10-27] MEDS ORDERED: LORazepam 0.5 MG TAB PO PRN (06:06)
[2022-10-27] MEDS ORDERED: HYDROmorphone INJ 0.5 MG/0.5 ML SYR IV PRN (06:06)
--- NOTE | 2022-10-27 06:44 | XRay Report ---
XR chest 1V portable HISTORY: 61 years-old Male renal failure acute renal failure COMPARISON: CT abdomen and pelvis of same day, chest radiographs 01/21/2020 TECHNIQUE: AP view of the chest FINDINGS: Cardiomediastinal and hilar silhouettes are within normal limits. Mild right hemidiaphragmatic elevat ion. Mild subsegmental bibasilar atelectasis. No pneumothorax, pleural effusion or overt pulmonary ed [place]. Bones appear grossly intact. IMPRESSION: No acute process. ACT 112: Negative or not required by law. The above report was generated using voice recognition software. It may contain grammatical, syntax o r spelling errors. Electronically signed by: Rony Quiles M.D. 10/27/2022 6:43 AM
--- NOTE | 2022-10-27 07:43 | CT Scan Report ---
CT SCAN OF THE ABDOMEN AND PELVIS WITHOUT IV CONTRAST CLINICAL HISTORY: Left flank pain. Known obstructing ureteral stone. COMPARISON STUDY: Abdominal CT dated 10/25/2022. TECHNIQUE: CT scan of the abdomen and pelvis is performed from the lung bases to the proximal femora. Images are reviewed in the axial, sagittal, and coronal planes. IV contrast was not administered for this examination. A dose lowering technique was utilized adhering to the principles of ALARA. CT DOSE: 2300.42 mGy.cm FINDINGS: Lung bases: The heart is enlarged and without pericardial effusion. The coronary arteries are densely calcified. A small hiatal hernia is noted. The lung bases are clear noting bibasilar scarring/atelec tasis. Liver: The unenhanced liver is normal in size, contour, and attenuation. There is no intrahepatic ale iary ductal dilatation. Gallbladder: Unremarkable. Spleen: Normal in size and attenuation. Pancreas: Unremarkable. Adrenal glands: Unremarkable. Kidneys: The unenhanced kidneys are normal in size. There is a 3 mm obstructing calculus is again see n at the left vesicoureteral junction on image #[id number]. This causes [id number] left hydroureterone phrosis. There is associated left-sided perinephric stranding and fluid, with fluid tracking inferior ly in the left retroperitoneal space. Fluid has increased from previous. No additional calculi are id entified in either kidney and there is no right ureteral stone. There is no right-sided hydronephrosi s. Left renal cysts measure up to 2.6 cm. Abdominal vasculature: There is advanced atherosclerotic calcification and mild ectasia of the abdomi nal aorta. Bowel: No bowel obstruction is seen. The appendix is well-visualized and normal. Peritoneum: There is no intraperitoneal free air or abdominal ascites. There is a fat-containing umbi lical hernia. Lymphadenopathy: None. Pelvic viscera: The prostate gland is mildly enlarged and heterogeneous. The bladder is normal as vis ualized. There is evidence of bilateral inguinal herniorrhaphy. Surgical clips are noted along the sp ermatic cord bilaterally. Skeletal structures: There is mild lumbosacral spondylosis. No lytic or blastic lesions are seen. IMPRESSION: 1. Unchanged appearance of a 3 mm obstructing calculus at the left vesicoureteral junction. This caus es mild to moderate left hydroureteronephrosis. 2. There is left-sided perinephric stranding and fluid, with fluid tracking inferiorly within the ret roperitoneal space. This is likely related to forniceal rupture, and the volume of retroperitoneal fl uid has increased from previous. 3. No additional calculi are identified in either kidney. 4. Advanced coronary artery calcification. Consider nonemergent cardiology follow-up. 5. Additional findings as above. ACT 112: Negative or not required by law. Electronically signed by: Alexsander Sosa M.D. 10/27/2022 7:41 AM
--- NOTE | 2022-10-27 08:07 | XRay Report ---
KUB CLINICAL HISTORY: Constipation. FINDINGS: 2 AP, portable, supine abdominal radiographs are correlated with abdominal CT dated 10/25/19 23. There is a nonobstructed abdominal bowel gas pattern. Mild fecal retention is seen throughout the colon. No evidence of intraperitoneal free air is seen on these supine images. Suture material proje cts over the groin bilaterally. There are no abnormal abdominal calcifications. The tiny obstructing calculus in the distal left ureter seen on 10/25/2022 is not visualized by x-ray. The bony structures appear intact. IMPRESSION: 1. No acute abnormality is identified. 2. The patient's known small obstructing distal left ureteral stone seen by CT is not visualized by x -ray. Electronically signed by: Alexsander Sosa M.D. 10/27/2022 8:06 AM
[2022-10-27] MEDS ORDERED: ACETAMINOPHEN 325 MG TAB PO PRN (09:21)
[2022-10-27 09:27] LABS: Magnesium 1.7 mg/dl (1.7-2.4)
--- NOTE | 2022-10-27 09:35 | Urology Consultation ---
I agree with the above documentation. Stone seems to have passed spontaneously. If he is feeling well, no intervention required at this point from urology perspective. We can arrange outpatient followup to further discuss stone management. Date of Consultation October 27, 2022 Assessment & Plan (1) Left ureteral stone: 61-year-old male with known 3 mm left UVJ stone admitted due to worsening left abdominal pain. Patient is afebrile, hemodynamically stable. Lab work reviewedcreatinine 1.77, no leukocytosis. CT A/P independently reviewed and an obstructing 3 mm left UVJ stone is largely unchanged from exam on 10/25. Left-sided perinephric stranding and fluid, with fluid tracking inferiorly within the retroperitoneal space, suggestive of forniceal rupture, and the volume of retroperitoneal fluid has increased from previous. We discussed options for stone management including trial of passage/medical expulsion therapy vs surgical intervention with ureteral stent placement. Forniceal rupture is an imaging finding that does not necessitate urologic intervention. After discussion he elects for trial of passage. Okay to resume diet from urologic perspective. Make n.p.o. at midnight for reassessment. Notified by nursing at 1245 that patient passed stone - collected in strainer. Recommend send stone for stone analysis. Okay to discharge from perspective if symptoms have resolved. Recommend continue course of p.o. antibiotics as previously prescribed. We will arrange outpatient follow-up with our service. History of Present Illness Attending Physician: Umang Morales MD History of Present Illness This is a 61-year-old male with past medical history of hypertension and inguinal hernia repair who presented to the ED on 10/27/2022 with complaint of worsening abdominal pain. He also has a known 3 mm left UVJ stone with mild to moderate hydronephrosis. He presented to the ED on 10/25/2022 with left lower quadrant discomfort and difficulty voiding. He was diagnosed with a 3 mm left UVJ stone with mild to moderate hydronephrosis. CT abdomen pelvis also suggestive of forniceal rupture. He was discharged to home with a course of p.o. ciprofloxacin to follow-up with urology outpatient. He returned to the emergency department this morning due to constipation. Afebrile on arrival, hemodynamically stable. Lab work reviewed. CBC showed WBC 9.97, hemoglobin 14.5. Chemistry notable for creatinine of 1.77, sodium 124, potassium 3.4. Urinalysis unremarkable. CT AP independently reviewed and showed a 3 mm obstructing calculus at the left UVJ causing mild to moderate left hydroureteronephrosis. Left-sided perinephric stranding and fluid, with fluid tracking inferiorly within the retroperitoneal space, likely related to a forniceal rupture, and the volume of retroperitoneal fluid has increased from previous. No additional calculi are identified in either kidney. ED course included IV fluids, ondansetron and hydromorphone. He was admitted to the hospital medicine service. He has been started on IV ceftriaxone. Patient seen and examined at bedside this morning. He is awake, alert and sitting up in bed. He notes discomfort in left lower quadrant of abdomen. No flank pain at present. He is voiding without difficulty. No dysuria or hematuria. No nausea or vomiting. No fever or chills. Reports last bowel movement was on 10/22. No prior stone history. No family history of kidney stones. Last ate at 11 PM on 10/26/2022. Allergies Allergy/AdvReac Type Severity Reaction Status Date / Time lisinopril AdvReac Cough Verified 10/27/22 05:32 Home Medications Medication Instructions Recorded Confirmed Type Ezetimibe (Zetia) 10 mg PO DAILY #0 tabs 02/09/17 10/27/22 History ciprofloxacin HCl 500 mg tablet 500 mg PO BID #14 tabs 10/25/22 10/27/22 Rx ondansetron 4 mg disintegrating 4 mg PO Q8H PRN nausea and 10/25/22 10/27/22 Rx tablet vomiting #30 tabs oxycodone 5 mg tablet 5 mg PO Q8H PRN pain #11 tabs 10/25/22 10/27/22 Rx tamsulosin 0.4 mg capsule (Flomax) 0.4 mg PO DAILY #14 caps 10/25/22 10/27/22 Rx amlodipine 10 mg tablet 10 mg PO DAILY 10/27/22 10/27/22 History aspirin 81 mg PO DAILY 10/27/22 10/27/22 History budesonide-formoterol HFA 160 2 puff inhalation BID 10/27/22 10/27/22 History mcg-4.5 mcg/actuation aerosol inhaler (Symbicort) hydrochlorothiazide 25 mg tablet 25 mg PO DAILY 10/27/22 10/27/22 History metoprolol succinate 50 mg 75 mg PO DAILY 10/27/22 10/27/22 History tablet,extended release 24 hr rosuvastatin 40 mg tablet 40 mg PO DAILY 10/27/22 10/27/22 History Patient History Medical History Heart disease Hypertension No pertinent family history Surgical History H/O hernia repair Social History Smoking Status: Former smoker Second Hand Exposure: No; Do You Dip or Chew Tobacco: No; Tobacco Cessation Education Requested by Patient: No Hx Substance Use: No Preferred Language: Pashto Communication Ability: Effective Mechanic Helper Required: No Beliefs That Will Affect Care: None Current Living Situation: Spouse Other Information That Helps Us Care for You: No Feels Safe at Home: Yes Safety Concerns: Feels Safe At This Time Assistive Devices: None Review of Systems Review of Systems: All systems reviewed & are unremarkable except as noted in HPI & below Physical Exam Constitutional: well developed, well nourished and + obese; no acute distress and not ill appearing Eyes: no scleral abnormality Neck: normal visual inspection Respiratory: normal respiratory effort and able to speak in complete sentences; no respiratory distress and no labored breathing Cardiovascular: Extremities: no pedal edema Gastrointestinal (Abdomen): Inspection/Auscultation: abdomen normal to inspection; abdomen not distended Percussion/Palpation: abdomen soft; abdomen nontender and no guarding Musculoskeletal: Head/Neck/Chest: normocephalic and head atraumatic Skin: No rashes noted to exposed skin Neurologic: moves all extremities and awake Psychiatric: Orientation: alert and oriented x 3 Genitourinary: no CVA tenderness Results & Data ([facility]) Vital Signs (Past 12 Hours) Vital Signs Temp Pulse Pulse Resp BP BP Pulse Ox 10/27/22 08:52 10/27/22 06:33 80 18 146/92 H 93 10/27/22 05:30 78 20 111/92 93 10/27/22 04:00 75 20 128/84 93 10/27/22 03:30 71 18 128/84 93 10/27/22 02:47 75 20 140/85 94 10/27/22 01:25 36.8 C 83 18 134/88 94 O2 Del Method 10/27/22 08:52 Room Air 10/27/22 06:33 Room Air 10/27/22 05:30 Room Air 10/27/22 04:00 Room Air 10/27/22 03:30 Room Air 10/27/22 02:47 10/27/22 01:25 PG Care Time/CCT Total # of Minutes Spent Total Time Spent with Patient: Total time spent is greater than 50% in coordination of care (as documented) at patient's floor/unit and/or counseling patient: Coding Level of Care Code OFFICE CONSULT LVL 3, 30 MIN Diagnoses Left ureteral stone N20.1
[2022-10-27] MEDS: cefTRIAXone SODIUM 2,000 MG in DEXTROSE 5% AD-VAN 50 ML IV SCH (10:04)
[2022-10-27] MEDS: EZETIMIBE 10 MG TABLET PO SCH (10:05)
[2022-10-27] MEDS: ROSUVASTATIN CALCIUM 20 MG TAB PO SCH (10:06)
[2022-10-27] MEDS: TAMSULOSIN HCL 0.4 MG CAP PO SCH (10:06)
[2022-10-27] MEDS: FLUTICASONE/VILANTEROL 200/25MCG 14 PUFFS/INHALER INH SCH (10:07)
[2022-10-27] MEDS: amLODIPine BESYLATE 5 MG TAB PO SCH (10:07)
[2022-10-27] MEDS: METOPROLOL SUCC 25MG EXT REL TAB PO SCH (10:07)
[2022-10-27] MEDS: HEPARIN SOD 5,000 UNIT/0.5 ML VIAL SQ SCH ×3 (10:08→22:35)
[2022-10-27] MEDS: POLYETHYLENE (MIRALAX) 17 GM PACK PO SCH (13:43)
[2022-10-27] MEDS: SENNA 8.6 MG TAB PO SCH (19:36)
[2022-10-28] MEDS: HEPARIN SOD 5,000 UNIT/0.5 ML VIAL SQ SCH (05:57)
[2022-10-28 06:32] LABS: Basophils # (auto) 0.04 K/uL (0-0.2); Basophils % (auto) 0.5 %; Eosinophils # (auto) 0.15 K/uL (0-0.50); Eosinophils % (auto) 1.8 %; Hematocrit (blood only) 39.3 % (42.0-52.0); Hemoglobin 13.8 g/dl (14.0-18.0); Immature Granulocytes # (auto) 0.03 K/uL (0.01-0.20); Immature Granulocytes % (auto) 0.4 %; Lymphocytes # (auto) 1.75 K/uL (1.2-3.4); Lymphocytes % (auto) 21.4 %; Mean Corpuscular Hemoglobin 30.5 pg (25.0-34.0); Mean Corpuscular Hgb Conc 35.1 g/dL (32.0-36.0); Mean Corpuscular Volume 86.8 fL (80.0-100.0); Mean Platelet Volume 9.8 fL (9.4-12.4); Monocytes # (auto) 1.41 K/uL (0.11-0.59); Monocytes % (auto) 17.2 %; Neutrophils % (auto) 58.7 %; Platelet Count 210 K/uL (130-400); RDW Coefficient of Variation 12.2 % (11.5-14.5); RDW Standard Deviation 38.9 fL (36.4-46.3); Red Blood Count 4.53 M/uL (4.70-6.10); White Blood Count 8.18 K/ul (4.8-10.8)
[2022-10-28 06:45] LABS: Calcium 9.3 mg/dl (8.5-10.1); Creatinine Clr Calc Pharmacy 94.9 ml/min; Est GFR (African American) 94.4 ml/min; Est GFR (Non-African American) 81.4 ml/min; Phosphorus 2.7 mg/dl (2.5-4.9); Potassium 3.5 mmol/L (3.5-5.1)
[2022-10-28] MEDS: cefTRIAXone SODIUM 2,000 MG in DEXTROSE 5% AD-VAN 50 ML IV SCH (08:10)
[2022-10-28] MEDS: TAMSULOSIN HCL 0.4 MG CAP PO SCH (08:11)
[2022-10-28] MEDS: EZETIMIBE 10 MG TABLET PO SCH (08:11)
[2022-10-28] MEDS: amLODIPine BESYLATE 5 MG TAB PO SCH (08:11)
[2022-10-28] MEDS: METOPROLOL SUCC 25MG EXT REL TAB PO SCH (08:11)
[2022-10-28] MEDS: ROSUVASTATIN CALCIUM 20 MG TAB PO SCH (08:11)
[2022-10-28] MEDS: FLUTICASONE/VILANTEROL 200/25MCG 14 PUFFS/INHALER INH SCH (08:11)
[2022-10-28] MEDS: POLYETHYLENE (MIRALAX) 17 GM PACK PO SCH (08:16)
[2022-10-28] MEDS: SENNA 8.6 MG TAB PO SCH (08:16)
[2022-10-28] MEDS ORDERED: POTASSIUM CHLORIDE CRTAB 20 MEQ TABCR PO STA (09:26)
--- NOTE | 2022-10-28 09:26 | Hospitalist Progress Note ---
Date of Service October 28, 2022 Assessment & Plan (1) Complicated UTI (urinary tract infection): Plan: Secondary to obstructive uropathy Hyponatremia, ARF secondary to illness Home diuretic contributory Medical telemetry given hyponatremia Hyponatremia work-up careful correction of serum sodium/careful IV hydration given valvular heart disease Monitor creatinine response to IVF Ceftriaxone for complicated UTI Urology consult Re: Obstructive uropathy (ER provider already in touch with Dr. Choudhury.) Patient passed renal stone yesterday Per urology, patient can be discharged and continue with antibiotics already prescribed for him previously Patient feels clinically much improved, denies any more pain He is urinating without difficulty Patient received gentle IV hydration, hyponatremia resolved Creatinine back to normal at 1.0, DANA resolved Hypertension, stable Hyperlipidemia on statin Rx valvular heart disease (moderate , mild MR 2021 TTE) past tobacco abuse. DVT prophylaxis. Heparin subcu Full code Admission and Anticipated Discharge Date Admission Date: October 27, 2022 Subjective Patient seen in follow-up of complicated UTI, renal stone, hyponatremia Patient was seen by urology yesterday, then passed the kidney stone later in the afternoon Had some constipation which resolved with MiraLAX This morning he is feeling well No fevers, chills, abdominal pain or flank pain. He is urinating without difficulty. Back to regular diet, no nausea no vomiting Review of Systems Review of Systems: All systems reviewed & are unremarkable except as noted in Subjective Physical Exam 2 Physical Exam: GENERAL: obese M, in no respiratory distress HEENT: NC/AT. EOMI. [place] palpebral conjunctivae NECK : Supple, short neck CHEST : CTAB HEART : RRR, systolic murmur best heard over sternal border ABDOMEN: Some distention,+ obese, + bowel sounds, minimal left-sided abdominal tenderness (much improved) EXTREMITIES : Minimal LE swelling, no LE tenderness, moves extremities SKIN: Normal color, warm NEUROLOGIC : awake and alert, answers questions appropriately, no facial asymmetry, speech fluent, moves extremities Results & Data Results & Data ([facility]) Vital Signs (Past 12 Hours) Vital Signs Temp Pulse Pulse Resp BP Pulse Ox O2 Del Method 10/28/22 08:00 36.8 C 85 18 116/77 93 Room Air 10/28/22 02:20 36.8 C 83 18 108/71 92 Room Air 10/27/22 22:15 96 H 10/27/22 22:37 37 C 93 H 18 130/84 91 Room Air Laboratory Results 10/28/22 10/28/22 10/27/22 Range/Units 05:48 05:48 18:07 WBC 8.18 (4.8-10.8) K/ul RBC 4.53 L (4.70-6.10) M/uL Hgb 13.8 L (14.0-18.0) g/dl Hct 39.3 L (42.0-52.0) % MCV 86.8 (80.0-100.0) fL MCH 30.5 (25.0-34.0) pg MCHC 35.1 (32.0-36.0) g/dL RDW Std Deviation 38.9 (36.4-46.3) fL RDW Coeff of Rick 12.2 (11.5-14.5) % Plt Count 210 (130-400) K/uL MPV 9.8 (9.4-12.4) fL Immature Gran % (Auto) 0.4 % Neut % (Auto) 58.7 % Lymph % (Auto) 21.4 % Allen % (Auto) 17.2 % Eos % (Auto) 1.8 % Baso % (Auto) 0.5 % Neut # (Auto) 4.80 (1.40-6.50) K/uL Lymph # (Auto) 1.75 (1.2-3.4) K/uL Allen # (Auto) 1.41 H (0.11-0.59) K/uL Eos # (Auto) 0.15 (0-0.50) K/uL Baso # (Auto) 0.04 (0-0.2) K/uL Immature Gran # (Auto) 0.03 (0.01-0.20) K/uL Sodium 135 L 131 L (136-145) mmol/L Potassium 3.5 (3.5-5.1) mmol/L Chloride 98 (98-107) mmol/L Carbon Dioxide 33 H (21-32) mmol/L Anion Gap 4 (3-11) BUN 12 (6-23) mg/dl Creatinine 1.00 D (0.6-1.4) mg/dl Est Cr Clr Drug Dosing 94.9 ml/min Est GFR ( Amer) 94.4 ml/min Est GFR (Non-Af Amer) 81.4 ml/min BUN/Creatinine Ratio 12.0 (10-20) Glucose 98 (70-99(Fasting)) mg/dl Calcium 9.3 (8.5-10.1) mg/dl Phosphorus 2.7 (2.5-4.9) mg/dl Magnesium 2.0 (1.7-2.4) mg/dl Stone Source Stone Weight Stone Composition Stone Composition 2 10/27/22 10/27/22 10/27/22 Range/Units 12:54 12:10 01:40 WBC (4.8-10.8) K/ul RBC (4.70-6.10) M/uL Hgb (14.0-18.0) g/dl Hct (42.0-52.0) % MCV (80.0-100.0) fL MCH (25.0-34.0) pg MCHC (32.0-36.0) g/dL RDW Std Deviation (36.4-46.3) fL RDW Coeff of Rick (11.5-14.5) % Plt Count (130-400) K/uL MPV (9.4-12.4) fL Immature Gran % (Auto) % Neut % (Auto) % Lymph % (Auto) % Allen % (Auto) % Eos % (Auto) % Baso % (Auto) % Neut # (Auto) (1.40-6.50) K/uL Lymph # (Auto) (1.2-3.4) K/uL Allen # (Auto) (0.11-0.59) K/uL Eos # (Auto) (0-0.50) K/uL Baso # (Auto) (0-0.2) K/uL Immature Gran # (Auto) (0.01-0.20) K/uL Sodium 129 L (136-145) mmol/L Potassium (3.5-5.1) mmol/L Chloride (98-107) mmol/L Carbon Dioxide (21-32) mmol/L Anion Gap (3-11) BUN (6-23) mg/dl Creatinine (0.6-1.4) mg/dl Est Cr Clr Drug Dosing ml/min Est GFR ( Amer) ml/min Est GFR (Non-Af Amer) ml/min BUN/Creatinine Ratio (10-20) Glucose (70-99(Fasting)) mg/dl Calcium (8.5-10.1) mg/dl Phosphorus (2.5-4.9) mg/dl Magnesium 1.7 (1.7-2.4) mg/dl Stone Source Pending Stone Weight Pending Stone Composition Pending Stone Composition 2 Pending Medications Administered Current Inpatient Medications Acetaminophen (Acetaminophen 325 Mg Tab) 650 mg PO Q4H PRN PRN Reason: Pain or Fever Stop: 11/26/22 09:20 Amlodipine Besylate (Amlodipine Besylate 5 Mg Tab) 10 mg PO DAILY [facility] Stop: 11/26/22 09:44 Last Admin: 10/28/22 08:11 Dose: 10 mg Ezetimibe (Ezetimibe 10 Mg Tablet) 10 mg PO DAILY [facility] Stop: 11/26/22 09:44 Last Admin: 10/28/22 08:11 Dose: 10 mg Fluticasone/Vilanterol (Fluticasone/Vilanterol 200/25mcg 14 Puffs/Inhaler) 1 puffs INH DAILY [facility]; Protocol Stop: 11/26/22 09:44 Last Admin: 10/28/22 08:11 Dose: 1 puffs Heparin Sodium (Porcine) (Heparin Sod 5,000 Unit/0.5 Ml Vial) 5,000 units SQ Q8 [place] Stop: 11/26/22 09:44 Last Admin: 10/28/22 05:57 Dose: 5,000 units Hydromorphone HCl (Hydromorphone Inj 0.5 Mg/0.5 Ml Syr) 0.5 mg IV Q3H PRN PRN Reason: Pain Stop: 11/10/22 06:05 Promethazine HCl 12.5 mg/ (Sodium Chloride) 50.5 mls @ 202 mls/hr IV Q6H PRN PRN Reason: Nausea And Vomiting Stop: 11/26/22 06:05 Ceftriaxone Sodium 2,000 mg/ (Dextrose) 50 mls @ 100 mls/hr IV Q24H [facility]; Protocol Stop: 11/06/22 08:29 Last Infusion: 10/28/22 08:56 Dose: Infused Lorazepam (Lorazepam 0.5 Mg Tab) 0.5 mg PO TID PRN PRN Reason: Anxiety Stop: 11/26/22 06:05 Magnesium Oxide (Magnesium Oxide 400 Mg Tab) [facility] [place] Stop: 11/27/22 09:29 Metoprolol Succinate (Metoprolol Succ 25mg Ext Rel Tab) 25 mg PO QAM [facility] Stop: 11/26/22 09:44 Last Admin: 10/28/22 08:11 Dose: 25 mg Oxycodone HCl (Oxycodone Hcl Ir 5 Mg Tab (Immediate Release)) 5 - 10 mg PO QID PRN PRN Reason: Pain Stop: 11/10/22 06:05 Polyethylene Glycol (Polyethylene (Miralax) 17 Gm Pack) 17 gm PO DAILY [facility] Stop: 11/26/22 13:29 Last Admin: 10/28/22 08:16 Dose: 17 gm Rosuvastatin Calcium (Rosuvastatin Calcium 20 Mg Tab) 40 mg PO DAILY [facility] Stop: 11/26/22 09:44 Last Admin: 10/28/22 08:11 Dose: 40 mg Sennosides (Senna 8.6 Mg Tab) 8.6 [facility] [place] Stop: 11/26/22 18:29 Last Admin: 10/28/22 08:16 Dose: Not Given Tamsulosin HCl (Tamsulosin Hcl 0.4 Mg Cap) 0.4 mg PO DAILY [facility] Stop: 11/26/22 09:44 Last Admin: 10/28/22 08:11 Dose: 0.4 mg
[2022-10-28] MEDS ORDERED: MAGNESIUM OXIDE 400 MG TAB PO SCH (09:30)
--- NOTE | 2022-10-28 10:19 | Discharge Summary ---
Date of Service October 28, 2022 Admission HPI Per Admitting Provider History obtained from patient and records. Medical history significant for hypertension, hyperlipidemia, valvular heart disease (moderate , mild MR 2021 TTE), urolithiasis, past tobacco abuse. 2 days ago, patient noted achy left-sided flank pain with nausea symptoms. No hematuria, no fever, no chills. Patient seen at the ER. CAT scan showed 3 mm obstructing calculus left suprarenal junction with moderate left hydroureteronephrosis and left-sided perinephric stranding within retrocrural space likely from forniceal rupture. Patient offered admission but declined. Patient discharged on ciprofloxacin and Vicodin home medications with instructions to follow-up with Urology outpatient. Worsening discomfort at home despite compliance with regimen. No fever, no chills, no chest pain, no SOB. Poor appetite. Patient returned to the ER this morning. Medical History as above Surgical History : None Family History : Heart disease Personal/Social history : Past tobacco abuse, occasional EtOH intake, [employer] ble[employer] Admission Exam Per Admitting Provider GENERAL: Comfortable, pleasant, obese, no respiratory distress SKIN: Normal color, warm HEENT: [place] palpebral conjunctivae, no ptosis, dry buccal mucosa NECK : Supple, short neck, no tenderness CHEST : CTA, no tenderness HEART : RRR, systolic murmur best heard over sternal border ABDOMEN: Some distention, left-sided abdominal tenderness EXTREMITIES : Minimal LE swelling, no LE tenderness, no other conspicuous deformities noted NEUROLOGIC : Coherent, no facial asymmetry, no other gross focality Principal Diagnosis UTI, obstructive uropathy, renal stone Hyponatremia DANA Discharge Exam GENERAL: obese M, in no respiratory distress HEENT: NC/AT. EOMI. [place] palpebral conjunctivae NECK : Supple, short neck CHEST : CTAB HEART : RRR, systolic murmur best heard over sternal border ABDOMEN: Some distention,+ obese, + bowel sounds, minimal left-sided abdominal tenderness (much improved) EXTREMITIES : Minimal LE swelling, no LE tenderness, moves extremities SKIN: Normal color, warm NEUROLOGIC : awake and alert, answers questions appropriately, no facial asymmetry, speech fluent, moves extremities Discharge Data Allergies Allergy/AdvReac Type Severity Reaction Status Date / Time lisinopril AdvReac Cough Verified 10/27/22 05:32 Consultations 10/27/22 05:04 ED Decision to Admit Stat 10/27/22 09:21 Consult Urology Routine Ordered Studies 10/27/22 02:37 CT abd pelvis wo con Urgent FINDINGS: Lung bases: The heart is enlarged and without pericardial effusion. The coronary arteries are densely calcified. A small hiatal hernia is noted. The lung bases are clear noting bibasilar scarring/atelectasis. Liver: The unenhanced liver is normal in size, contour, and attenuation. There is no intrahepatic biliary ductal dilatation. Gallbladder: Unremarkable. Spleen: Normal in size and attenuation. Pancreas: Unremarkable. Adrenal glands: Unremarkable. Kidneys: The unenhanced kidneys are normal in size. There is a 3 mm obstructing calculus is again seen at the left vesicoureteral junction on image #[id number]. This causes [id number] left hydroureteronephrosis. There is associated left- sided perinephric stranding and fluid, with fluid tracking inferiorly in the left retroperitoneal space. Fluid has increased from previous. No additional calculi are identified in either kidney and there is no right ureteral stone. There is no right-sided hydronephrosis. Left renal cysts measure up to 2.6 cm. Abdominal vasculature: There is advanced atherosclerotic calcification and mild ectasia of the abdominal aorta. Bowel: No bowel obstruction is seen. The appendix is well-visualized and normal. Peritoneum: There is no intraperitoneal free air or abdominal ascites. There is a fat-containing umbilical hernia. Lymphadenopathy: None. Pelvic viscera: The prostate gland is mildly enlarged and heterogeneous. The bladder is normal as visualized. There is evidence of bilateral inguinal herniorrhaphy. Surgical clips are noted along the spermatic cord bilaterally. Skeletal structures: There is mild lumbosacral spondylosis. No lytic or blastic lesions are seen. IMPRESSION: 1. Unchanged appearance of a 3 mm obstructing calculus at the left vesicoureteral junction. This causes mild to moderate left hydroureteronephrosis. 2. There is left-sided perinephric stranding and fluid, with fluid tracking inferiorly within the retroperitoneal space. This is likely related to forniceal rupture, and the volume of retroperitoneal fluid has increased from previous. 3. No additional calculi are identified in either kidney. 4. Advanced coronary artery calcification. Consider nonemergent cardiology follow-up. 5. Additional findings as above. Hospital Course (1) Complicated UTI (urinary tract infection): Secondary to obstructive uropathy Hyponatremia, ARF secondary to illness Home diuretic contributory Medical telemetry given hyponatremia Hyponatremia work-up careful correction of serum sodium/careful IV hydration given valvular heart disease Monitor creatinine response to IVF Ceftriaxone for complicated UTI Urology consult Re: Obstructive uropathy (ER provider already in touch with Dr. Choudhury.) Patient passed renal stone yesterday Per urology, patient can be discharged and continue with antibiotics already prescribed for him previously Patient feels clinically much improved, denies any more pain He is urinating without difficulty Patient received gentle IV hydration, hyponatremia resolved HCTZ on hold Creatinine back to normal at 1.0, DANA resolved Hypertension, stable Hyperlipidemia on statin Rx valvular heart disease (moderate , mild MR 2021 TTE) past tobacco abuse. Total Time Total Time Spent Total Time Spent (In Minutes): 40 Discharge Plan Discharge Items Patient Disposition: Home - Self-Care Reason For Visit: HYPONATREMIA, OBS UROPATHY Discharge Diagnosis: UTI, obstructive uropathy, renal stone Hyponatremia DANA Activity: Per Instructions section Non-emergency contact: Primary Care Provider and Urologist Call non-emergency contact if: you have any medication questions and your symptoms worsen Follow-up/Referrals: Houston Francois DO [Primary Care Provider] - (Date & Time 11/04/2022 2:20 PM Provider Houston Francois DO Department Family Practice [facility] ) Diet: Heart Healthy Addtl Attending Provider Instructions: Follow-up with your primary care doctor, the appointment was scheduled for you for 11/04/2022. Finish antibiotic treatment, as prescribed. Do not take hydrochlorothiazide. Monitor your blood pressure at home if you can , and write down your numbers. Discuss further with your primary care doctor if /when you should be on any other blood pressure medications. Pending Studies at Discharge: Yes Studies:: Renal stone analysis Stand-Alone Forms: My [employer], Smoking Cessation Medications and DC Order Prescriptions: Continued Ezetimibe (Zetia) 10 MG tablet 10 mg PO DAILY Qty: 0 amlodipine 10 mg tablet 10 mg PO DAILY rosuvastatin 40 mg tablet 40 mg PO DAILY budesonide-formoterol [Symbicort] 160-4.5 mcg/actuation HFA aerosol inhaler 2 puff INHALATION BID aspirin 81 mg PO DAILY metoprolol succinate 50 mg tablet extended release 24 hr 75 mg PO DAILY tamsulosin [Flomax] 0.4 mg capsule 0.4 mg PO DAILY Qty: 14 0RF ondansetron 4 mg tablet,disintegrating 4 mg PO Q8H PRN (Reason: nausea and vomiting) Qty: 30 0RF ciprofloxacin HCl 500 mg tablet 500 mg PO BID Qty: 14 0RF oxycodone 5 mg tablet 5 mg PO Q8H PRN (Reason: pain) Qty: 11 0RF Discontinued hydrochlorothiazide 25 mg tablet 25 mg PO DAILY Discharge Orders: Discharge Order (Routine); Ordered 10/28/22 Ordered By: Umang Morales Admission Data Admit Date/Time: 10/27/22 06:02 Attending Provider: Umang Morales Admit Provider: Abhinav Melton Primary Care Provider: Houston Francois Other Providers: Abhinav Melton ; Lavelle Choudhury
[2022-11-03 17:02] LABS: Component 2 DNR; Source RENAL
== END 2022-10-28 12:59 | disposition home or self-care (01) | DRG 690 ==
LOC: ED 01:21 → 2N 06:02